=== PATIENT | male | born 1955 | race Caucasian/White ===

== ENCOUNTER 2017-10-23 10:39 | Emergency (ER) | payer MEDICAID ==
[~2017-10-23] VITALS: Ht 185.4 cm; Wt 136.4 kg
[~2017-10-23 10:39] MED LIST: AZIT250T PO
[2017-10-23 11:37] LABS: CLARITY,URINE CLEAR (Clear); COLOR,URINE YELLOW (Yellow); GLUCOSE, URINE NEGATIVE (Neg); KETONES,URINE TRACE mg/dl (Neg); LEUKOCYTE ESTERASE ,URINE NEGATIVE (Neg); NITRITES, URINE NEGATIVE (Neg); OCCULT BLOOD,URINE NEGATIVE (Neg); PH,URINE 5.5 (4.8-8.0); PROTEIN,URINE NEGATIVE (Neg)
[2017-10-23 11:40] LABS: UA COLLECTION TYPE VOIDED
[2017-10-23 11:56] LABS: BASOPHILS % (AUTO) 0.5 % (0-1); EOSINOPHILS # (AUTO) 0.3 X10'3 (0-0.9); EOSINOPHILS % (AUTO) 4.5 % (0-6); HEMATOCRIT 49.6 % (42.0-52.0); HEMOGLOBIN 17.4 g/dl (14.0-17.9); LYMPHOCYTES # (AUTO) 2.3 X10'3 (1.1-4.8); LYMPHOCYTES % (AUTO) 37.1 % (21-51); MEAN CORPUSCULAR HEMOGLOBIN 33.6 PG (27.0-31.0); MEAN CORPUSCULAR VOLUME 95.9 FL (78-98); MEAN PLATELET VOLUME 9.3 FL (7.4-10.4); MONOCYTES # (AUTO) 0.3 X10'3 (0-0.9); MONOCYTES % (AUTO) 5.4 % (2-12); NEUTROPHILS # (AUTO) 3.2 X10'3 (1.8-7.7); NEUTROPHILS % (AUTO) 52.5 % (42-75); PLATELET COUNT 160 X10'3 (140-440); RED BLOOD COUNT 5.18 X10'6 (4.70-6.10); RED CELL DISTRIBUTION WIDTH 12.9 % (11.5-14.5); WHITE BLOOD COUNT 6.1 X10'3 (4.5-11.0)
[2017-10-23 12:06] LABS: PROTHROMBIN TIME 10.4 SECONDS (9.0-12.0)
[2017-10-23 12:11] LABS: ALANINE AMINOTRANSFERASE 56 U/L (12-78); ALBUMIN 3.9 G/DL (3.4-5.0); ALKALINE PHOSPHATASE 85 IU/L (46-116); AMYLASE 57 U/L (25-115); ANION GAP 9 (8-16); ASPARTATE AMINO TRANSFERASE 36 U/L (10-37); BILIRUBIN,TOTAL 0.7 MG/DL (0.1-1.0); BLOOD UREA NITROGEN 11 MG/DL (7-18); CALCIUM 9.2 MG/DL (8.5-10.1); CHLORIDE 104 MMOL/L (99-107); GLUCOSE 153 MG/DL (70-104); LIPASE 210 U/L (73-393); POTASSIUM 4.1 MMOL/L (3.5-5.1); SODIUM 142 MMOL/L (135-145); TOTAL CARBON DIOXIDE 29.4 MMOL/L (24-32); TOTAL PROTEIN 7.8 G/DL (6.4-8.2); eGFR 75 ML/MIN
[2017-10-23 12:24] VITALS: BP 216/152
[2017-10-23] MEDS ORDERED: ketorolac trometh inj. 60 MG/2 ML VIAL IM ONE (12:35)
[2017-10-23] MEDS ORDERED: NAPR-56 PO (12:36)
[2017-10-23] MEDS ORDERED: CYCL-1 PO (12:36)
== END 2017-10-23 12:54 | disposition home or self-care (01) ==
LOC: ER 10:40
DX: G89.29 Other chronic pain (principal); M54.5 Low back pain; I10 Essential (primary) hypertension; Z59.0 Homelessness
CPT/HCPCS: 36415; 74018; 80053; 81003; 82150; 83690; 85025; 85610; 96372; 99285; J1885

== ENCOUNTER 2021-01-31 09:37 | Emergency (ER) | payer MEDICARE, MEDICAID ==
[~2021-01-31] VITALS: Ht 185.4 cm; Wt 136.4 kg
[~2021-01-31 09:37] MED LIST changes: +CYCL-1 PO
[2021-01-31 09:47] VITALS: BP 146/95
[2021-01-31] MEDS ORDERED: LIDOcaine 1% W/epiNEPHrine 1:200,000 10ml vial IJ ONE (12:10)
[2021-01-31] MEDS ORDERED: TETanus/Pertussis (Acell)/Diphther VAC/PF (Tdap-Adult) 0.5ml syringe IMVAC ONE (12:10)
[2021-01-31] MEDS ORDERED: SULF1TAB49 PO (12:15)
[2021-01-31] MEDS ORDERED: CEPH-585 PO (12:15)
== END 2021-01-31 12:44 | disposition home or self-care (01) ==
LOC: ER 09:37
DX: L02.01 Cutaneous abscess of face (principal); I10 Essential (primary) hypertension; Z79.1 Long term (current) use of non-steroidal anti-inflammatories (NSAID); Z79.899 Other long term (current) drug therapy
CPT/HCPCS: 10060; 90471; 90715; 99283